=== PATIENT | male | born 1950 ===

== ENCOUNTER → 2016-11-13 | Outpatient (CLI) | payer MEDICARE ==
[~2016-11-13] MED LIST: AMLODIPINE BESYL5 MG PO; HYDROCODON-ACE1 EAC2 PO; METOPROLOL SUCC25 MG PO; MOTRIN-DPS800 MG PO; PRILOSEC DPS20 MG PO; ULTRAM50 MG PO
== END | disposition home or self-care (01) ==
LOC: RAD.S 08:52
DX: M54.5 Low back pain (principal); M51.86 Other intervertebral disc disorders, lumbar region; M51.87 Other intervertebral disc disorders, lumbosacral region